=== PATIENT | female | born 1990 | race African-American/Black ===

== ENCOUNTER 2024-12-23 15:42 | Outpatient (CLI) | payer BC | END 2024-12-23 15:43 | disposition home or self-care (01) | LOC: CSHDTY/OP 15:42 | PROVIDERS: ATTEND Nurse Practitioner Family | DX: Z71.3 Dietary counseling and surveillance (principal) | CPT/HCPCS: 97802 ==

== ENCOUNTER 2024-12-30 08:28 | Outpatient (CLI) | payer BC | END 2024-12-30 08:29 | disposition home or self-care (01) | LOC: CSHSLEEP 08:28 | PROVIDERS: ATTEND Physician Assistant | DX: G47.33 Obstructive sleep apnea (adult) (pediatric) (principal); R53.83 Other fatigue; R09.89 Other specified symptoms and signs involving the circulatory and respiratory systems; G25.89 Other specified extrapyramidal and movement disorders; R51.9 Headache, unspecified; F32.A Depression, unspecified; F41.9 Anxiety disorder, unspecified; K21.9 Gastro-esophageal reflux disease without esophagitis; E66.9 Obesity, unspecified; Z68.33 Body mass index [BMI] 33.0-33.9, adult; G47.00 Insomnia, unspecified | CPT/HCPCS: 95800 ==

== ENCOUNTER 2025-02-12 15:20 | Outpatient (CLI) | payer BC | END 2025-02-12 15:21 | disposition home or self-care (01) | LOC: CSHDTY/OP 15:20 | PROVIDERS: ATTEND Nurse Practitioner Family | DX: Z71.3 Dietary counseling and surveillance (principal) | CPT/HCPCS: 97802 ==